=== PATIENT | male | born 1960 | race Caucasian/White ===

== ENCOUNTER 2016-04-25 11:15 | Emergency (ER) | payer OTHER ==
[~2016-04-25] VITALS: Ht 185.4 cm; Wt 86.2 kg
[~2016-04-25 11:15] MED LIST: AMOXICILLIN500 M2 PO; AMOXICILLIN500 MG PO; BACTRIM DS 8001 TAB PO; BENZONATATE200 M1 PO; CEPHALEXIN500 MG PO; CIPRO 500MG (E500 MG PO; CIPROFLOXACIN500 MG PO; FLAG500 PO; HYDROCODONE/ACE1 TA1 PO; MOBIC15 MG PO; MORPHINE SULFAT15 M3 PO; MS CONTIN15 M1 PO; OXYCODONE HCL10 M2 PO; OXYCODONE HYDRO10 M1 PO; PERCOCET 325 MG1 TA2 PO; PERCOCET 5-3251 EACH PO; PROVENTIL HFA6.7 GM INH; VICODIN5-300 PO; ZITHROMAX250 M2 PO
--- NOTE | 2016-04-25 12:36 | ED NECK/BACK PAIN COMPLAINT ---
History of Present Illness General Chief Complaint: Neck/Upper Back Pain/Injury Stated Complaint: NECK INJ. Source: patient, old records Exam Limitations: no limitations Vital Signs & Intake/Output Vital Signs & Intake/Output Vital Signs Date Time Temp Pulse Resp B/P Pulse O2 O2 Flow FiO2 Ox Delivery Rate 04/25 1415 97.6 69 17 118/79 97 Room Air 04/25 1124 98.7 89 20 154/90 97 Room Air Allergies Coded Allergies: NO KNOWN ALLERGIES (07/29/15) Reconcile Medications Albuterol Sulfate (Proventil Hfa) 90 MCG HFA.AER.AD 2 PUF INH Q4 cough Azithromycin (Zithromax) 250 MG TABLET 1 DP PO AD bronchitis 2 the first day followed by 1 for days 2-5 Benzonatate 200 MG CAPSULE 1 CAP PO TIDPRN cough Diazepam (Valium) 5 MG TABLET 1-2 TAB PO Q6P PRN muscle strain/spasm Ibuprofen 800 MG TABLET 1 TAB PO Q6PRN PRN pain Morphine Sulfate (Morphine Sulfate ER) 15 MG TABLET.ER 1 TAB PO BIDP PRN PAIN (Reported) Oxycodone HCl 10 MG TABLET 1 TAB PO 4 TIMES/DAY PRN PAIN (Reported) OXYCODONE HCL (Oxycodone Hydrochloride) 10 MG TAB 1 TAB PO 4 TIMES/DAY PAIN ( Reported) Triage Note: PT TRIPPED AND FELL AT WORK ON SUNDAY INJURING RIGHT SIDE OF NECK. FELT LIKE HE WAS GETTING BETTER BUT TODAY FEELS WORSE Triage Nurses Notes Reviewed? yes Onset: 3 days Duration: day(s):, constant, continues in ED Timing: recent history Quality/Severity: severe, sharpness Location: C-spine, paraspinous muscles Radiation: none Context: fall/near fall Method of Injury: fall, twisted Loss of Consciousness: no loss of consciousness Modifying Factors: immobilization, jarring, movement, rest Associated Symptoms: muscle spasm HPI: 3 days prior to admission OF what patient lost control and fell onto his right hip and later developed generalized neck pain not controlled with chronic pain medications. He denies fever chills nausea vomiting diarrhea abdominal pain chest pain shortness breath headache dysuria rash bleeding change in motor sensory function change in bowel bladder habit. Past History Travel History Traveled to [place] past 21 day No Medical History Any Pertinent Medical History? 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 No Review of Systems Review of Systems Constitutional: Reports: no symptoms. Eyes: Reports: no symptoms. Ears, Nose, Throat, Mouth: Reports: no symptoms. Respiratory: Reports: no symptoms. Cardiovascular: Reports: no symptoms. Gastrointestinal/Abdominal: Reports: no symptoms. Musculoskeletal: Reports: see HPI, muscle pain, muscle stiffness, neck pain. Skin: Reports: no symptoms. Neurological/Psychological: Reports: no symptoms. All Other Systems: Reviewed and Negative Physical Exam Physical Exam General Appearance: well developed/nourished, alert, awake, anxious, moderate distress Head: atraumatic, normal appearance Eyes: Bilateral: normal appearance, PERRL, EOMI, normal inspection. Ears, Nose, Throat, Mouth: hearing grossly normal, moist mucous membrane Neck: normal inspection, supple, normal alignment, paraspinous muscle tender, no midline tenderness Respiratory: normal breath sounds, chest non-tender, no respiratory distress, quiet respiration, lungs clear Cardiovascular: regular rate/rhythm, normal peripheral pulses, norml femoral pulses equa Peripheral Pulses: 4+ carotid (R), 4+ carotid (L) Gastrointestinal: soft, non-tender Back: normal inspection, normal range of motion, no vertebral tenderness Extremities: non-tender, normal range of motion, no ligament instability Straight Leg Raising: Right: Negative. Left: Negative. Sensory: Medial Le: L4R, L4L. Top of Foot: 2: L5R, L5L. Sole of Foot: 2: SIR, ZHENG. Motor: Deficit L4 Right: No Deficit L4 Left: No Deficit L5 Right: No Deficit L5 Left: No Deficit S1 Right: No Deficit S1 Right: No Ext. Big Toe: 3: L5 Left, L5 Right. DTR: Deficit L4 Left: No Deficit L4 Right: No Deficit S1 Left: No Deficit S1 Right: No Patellar: 3: L4 Right, L4 Left. 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 Discussed w/RAD: CT Scan. Radiology Impression: 1. There are no acute fractures or subluxations. 2. There are posterior disc osteophyte complexes and uncovertebral osteophytosis most severe at C5-C6 and C6-C7, with foraminal narrowing as described. 3. There is multilevel facet arthropathy, most severe on the left at C4-C5. Departure Departure Time of Disposition: 135 Disposition: HOME OR SELF CARE Condition: Stable Clinical Impression Primary Impression: Cervical myofascial strain Qualifiers: Encounter type: initial encounter Qualified Code: S16.1XXA - Strain of muscle, fascia and tendon at neck level, initial encounter Referrals: BRIANNA DANG MD (PCP/Family) Departure Forms: Customer Survey General Discharge Information Prescriptions: Current Visit Scripts Diazepam (Valium) 1-2 TAB PO Q6P PRN muscle strain/spasm #30 TAB Ref 1 Ibuprofen 1 TAB PO Q6PRN PRN pain #50 TAB
--- NOTE | 2016-04-25 13:22 | CT SCAN REPORT ---
EXAMINATION: CT CERVICAL SPINE WITHOUT CONTRAST CLINICAL INFORMATION: Near fall with neck pain and radiculopathy. COMPARISON: MRI scan 05/18/2011. TECHNIQUE: A noncontrast axial CT scan of the cervical spine was obtained. Coronal and sagittal reformatted images were generated at the acquisition workstation. DLP: 362.02 mGy-cm FINDINGS: The study redemonstrates reversal of the cervical lordosis. There is narrowing of intervertebral disc height with marginal osteophytes at C5-C6 and C6-C7, demonstrated on the prior study. There are sclerotic and degenerative endplate changes at these levels. There are no acute compression fractures. The lateral masses of C1 and C2 are normally aligned and the dens is intact. There are small cysts in the base of the dens and body of C2, which are likely degenerative and have developed since the prior study. Bone mineralization is normal. The prevertebral soft tissues are unremarkable. The visualized lung apices are well aerated. SPINAL LEVELS: C2-C3: There is a prominent posterior disc osteophyte complex on the left and there are uncovertebral osteophytes. There is severe left facet arthropathy. There is [id number] left and moderate right foraminal narrowing. There is no central stenosis. C3-C4: There is severe left facet arthropathy. There is a posterior disc osteophyte complex. There are bilateral uncovertebral osteophytes. There is moderate bilateral foraminal narrowing. There is no central stenosis. C4-C5: There is severe left facet arthropathy. There is a posterior disc protrusion. There are left greater than right uncovertebral osteophytes. There is moderate left and mild right foraminal narrowing. There is no central stenosis. C5-C6: There is moderate right facet arthropathy. There is a posterior disc osteophyte complex. There are large uncovertebral osteophytes bilaterally. There is severe right and moderate left foraminal narrowing. There is no central stenosis. C6-C7: There is a broad-based posterior disc osteophyte complex. There are large bilateral uncovertebral osteophytes. There is severe bilateral foraminal narrowing. There is no central stenosis. C7-T1: Disc contour is normal. There is no central stenosis or foraminal narrowing. IMPRESSION: 1. There are no acute fractures or subluxations. 2. There are posterior disc osteophyte complexes and uncovertebral osteophytosis most severe at C5-C6 and C6-C7, with foraminal narrowing as described. 3. There is multilevel facet arthropathy, most severe on the left at C4-C5.
[2016-04-25] MEDS ORDERED: IBUPROFEN800 M1 PO (13:58)
[2016-04-25] MEDS ORDERED: VALIUM5 M2 PO (13:58)
[2016-04-25 14:15] VITALS: BP 118/79
== END 2016-04-25 14:16 ==
LOC: ERH 11:15
DX: S16.1XXA Strain of muscle, fascia and tendon at neck level, initial encounter (principal); W19.XXXA Unspecified fall, initial encounter
CPT/HCPCS: J3360

== ENCOUNTER 2016-09-28 12:55 | Emergency (ER) | payer OTHER ==
[~2016-09-28] VITALS: Ht 185.4 cm; Wt 88.5 kg
[~2016-09-28 12:55] MED LIST changes: +IBUPROFEN800 M1 PO; +VALIUM5 M2 PO
--- NOTE | 2016-09-28 13:28 | ED GI/GU/ABDOMINAL COMPLAINT ---
History of Present Illness General Chief Complaint: Nausea, Vomiting, Diarrhea Stated Complaint: NAUSEA, VOMITING Source: patient, old records Exam Limitations: no limitations Vital Signs & Intake/Output Vital Signs & Intake/Output Vital Signs Date Time Temp Pulse Resp B/P B/P Pulse O2 O2 Flow FiO2 Mean Ox Delivery Rate 09/28 1605 96.8 57 16 133/86 99 Room Air 09/28 1300 97.4 69 18 149/87 94 Room Air Allergies Coded Allergies: NO KNOWN ALLERGIES (07/29/15) Reconcile Medications Ondansetron (Zofran Odt) 4 MG TAB.RAPDIS 1 TAB SL TID PRN NAUSEA Oxycodone HCl 10 MG TABLET 1 TAB PO TID PAIN (Reported) Triage Note: PT STATES HE HAS HAD NAUSEA FOR THE PAST WEEK. PT STATES HE HAS BEEN VOMITING EVERY DAY AND IS UNABLE TO KEEP ANYTHING DOWN. PT C/O FREQUENT URINATION. PT HAVING RIGHT FLANK PAIN THAT MAKES HIM VOMIT. PT STATES HE FEELS BLOATED AND WHEN HE TAKES A FEW BITES OF FOOT IT FEELS LIKE HE ATE A LARGE MEAL. Triage Nurses Notes Reviewed? yes HPI: Patient presents complaining of nausea vomiting or generalized abdominal crampy pain as well as early safety and occasional right flank pain. Patient states he occasionally also has urinary frequency but denies any dysuria. Patient states he is unable to keep anything down for the past week. There's been no diarrhea. Crampy abdominal pain is constant and is diffuse. He rates it as 3 out of 10. There is no radiation outside of the tonsil area. There are no aggravating or mitigating factors. The pain in his right flank is intermittent lasting a few minutes and then goes away. There is no radiation. Pain is sharp in nature. There are no aggravating or mitigating factors. He rates that pain at 7 out of 10 when he has it. Patient has seen Dr. Sanchez in the past for similar symptoms. Past History Travel History Traveled to [place] past 21 day No Medical History Any Pertinent Medical History? 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 No Review of Systems Review of Systems Constitutional: Reports: no symptoms. EENTM: Reports: no symptoms. Respiratory: Reports: no symptoms. Cardiovascular: Reports: no symptoms. GI: Reports: see HPI, abdominal pain, bloody stool, vomiting. Genitourinary: Reports: no symptoms. Musculoskeletal: Reports: no symptoms. Skin: Reports: no symptoms. Neurological/Psychological: Reports: no symptoms. Hematologic/Endocrine: Reports: no symptoms. Immunologic/Allergic: Reports: no symptoms. All Other Systems: Reviewed and Negative Physical Exam Physical Exam General Appearance: well developed/nourished, alert, awake, anxious, mild distress Head: atraumatic, normal appearance Eyes: Bilateral: PERRL, EOMI. Ears, Nose, Throat, Mouth: hearing grossly normal, DRY MUCOSA Neck: normal inspection, supple, full range of motion Respiratory: normal breath sounds, chest non-tender, no respiratory distress, lungs clear Cardiovascular: regular rate/rhythm, normal peripheral pulses Gastrointestinal: normal bowel sounds, soft, non-tender, no organomegaly Back: normal inspection, normal range of motion Extremities: normal range of motion Neurologic/Psych: no motor/sensory deficits, awake, alert, oriented x 3, normal gait Skin: intact, normal color, warm/dry Core Measures ACS in differential dx? No Severe Sepsis Present: No Septic Shock Present: No Progress Differential Diagnosis: appendicitis, biliary colic, cholecystitis, diverticulitis, gastritis, hepatitis, ischemic bowel, inflamm bowel dis, pancreatitis, peptic ulcer, PUD/GERD, SBO Plan of Care: Orders Procedure Date/time Status URINALYSIS 09/28 1327 Complete LIPASE 09/28 1327 Complete COMPREHENSIVE METABOLIC PANEL 09/28 132 Complete CBC WITHOUT DIFFERENTIAL 09/28 132 Complete AMYLASE 09/28 1327 Complete Laboratory Tests 09/28/16 1345: Urinalysis LIGHT H, Urine Color YEL, Urine Clarity CLEAR, Urine pH 6.5, Ur Specific [place] 1.010, Urine Protein NEG, Urine Ketones 15 H, Urine Nitrite NEG, Urine Bilirubin NEG, Urine Urobilinogen 0.2, Ur Leukocyte Esterase NEG, Ur Microscopic SEDIMENT EXAMINED, Urine RBC 3-5, Urine Bacteria FEW H, Urine Hemoglobin MOD H, Urine Glucose NEG 09/28/16 1334: Anion Gap 10, Estimated GFR > 60, BUN/Creatinine Ratio 14.0, Glucose 82, Calcium 9.7, Total Bilirubin 0.7, AST 28, ALT 32, Alkaline Phosphatase 81, Total Protein 7.4, Albumin 4.6, Globulin 2.8, Albumin/Globulin Ratio 1.6, Amylase 46, Lipase 72, CBC w Diff NO MAN DIFF REQ, RBC 4.98, MCV 83.6, MCH 28.5, RDW 13.8, MPV 7.2 L, Gran % 64.5, Lymphocytes % 25.5, Monocytes % 7.5, Eosinophils % 2.1, Basophils % 0.4, Absolute Granulocytes 4.1, Absolute Lymphocytes 1.6, Absolute Monocytes 0.5, Absolute Eosinophils 0.1, Absolute Basophils 0, PUBS MCHC 34.0 Diagnostic Imaging: Viewed by Me: CT Scan. Discussed w/RAD: CT Scan. Radiology Impression: PATIENT: BRIDGETTE BRAVO PRESENT AGE: 56 PATIENT ACCOUNT NO: [id number] : 61 LOCATION: [facility] ORDERING PHYSICIAN: LADAN BENOIT MD SERVICE DATE: 09/28/16 EXAM TYPE: CAT - CT ABD & PELVIS W IV CONTRAST EXAMINATION: CT ABDOMEN AND PELVIS WITH CONTRAST CLINICAL INFORMATION: Diffuse abdominal pain. COMPARISON: 11/21/2015 TECHNIQUE: Multidetector volumetric imaging was performed of the abdomen and pelvis before and after the IV administration of 95 mL of Optiray 320 intravenous contrast. Sagittal and coronal reformatted images were obtained on the technologist's workstation. DLP: 353 mGy-cm FINDINGS: LUNG BASES: Unremarkable. LIVER, GALLBLADDER, AND BILIARY TREE: Unremarkable. PANCREAS: Unremarkable. SPLEEN: Unremarkable. ADRENAL GLANDS: Unremarkable. KIDNEYS AND URETERS: Kidneys have normal size, cortical thickness and attenuation. No renal mass, nephrolithiasis, hydronephrosis or perinephric edema. BLADDER: Unremarkable. GASTROINTESTINAL TRACT: Bowel loops are normal in caliber. No evidence of acute inflammation or obstruction along the gastrointestinal tract. Appendix is 0.5 cm diameter and there is no periappendiceal fat stranding (images [id number], series 3). No ascites or pneumoperitoneum. ABDOMINAL WALL: Intact appearance of mesh of the lower abdominal wall. No abdominal wall or inguinal hernia. LYMPH NODES: No pathologic sized lymph nodes within the abdomen or pelvis. VASCULAR: Abdominal aorta is normal in caliber and the celiac trunk, SMA, JUDY and renal arteries are widely patent. PELVIC VISCERA: Prostate gland is grossly unremarkable. No pelvic free fluid. 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 Multilevel disc degeneration of the lumbar spine and chronic, minimal retrolisthesis at L1-L2 and L2-L3. 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 IMPRESSION: No acute imaging abnormalities within the abdomen or pelvis compared to 11/21/2015. DICTATED BY: GEOVANNA HAMPTON MD DATE/ TIME DICTATED:09/28/161536 FANCY SEWER:ZAC DATE/TIME TRANSCRIBED: 09/28/161536 CONFIDENTIAL, DO NOT COPY WITHOUT APPROPRIATE AUTHORIZATION. < Electronically signed in Other Vendor System> SIGNED BY: GEOVANNA HAMPTON MD 09/28/16 1549 Initial ED EKG: none Departure Departure Disposition: HOME OR SELF CARE Condition: Stable Clinical Impression Primary Impression: Upper abdominal pain, unspecified Secondary Impressions: Nausea Referrals: BRIANNA DANG MD (PCP/Family) ETTA SANCHEZ MD Additional Instructions: TAKE ZOFRAN NEEDED FOR NAUSEA FOLLOW UP WITH DR. SANCHEZ RETURN FOR ANY CONCERNS Departure Forms: Customer Survey General Discharge Information Prescriptions: Current Visit Scripts Ondansetron (Zofran Odt) 1 TAB SL TID PRN NAUSEA #10 TAB
[2016-09-28 13:41] LABS: ABSOLUTE BASOPHIL COUNT 0 /CUMM (0.0-0.2); ABSOLUTE EOSINOPHIL COUNT 0.1 /CUMM (0.0-0.7); ABSOLUTE GRANULOCYTE CT 4.1 /CUMM (1.4-6.5); ABSOLUTE LYMPH COUNT 1.6 /CUMM (1.2-3.4); ABSOLUTE MONOCYTE COUNT 0.5 /CUMM (0.10-0.60); BASOPHIL % 0.4 % (0.0-2.0); EOSINOPHIL % 2.1 % (0-5); GRANULOCYTE % 64.5 % (42.2-75.2); HEMATOCRIT 41.7 % (42-52); MEAN CORPUSCULAR HGB 28.5 PG (27.0-31.0); MEAN CORPUSCULAR VOLUME 83.6 FL (80.0-94.0); MEAN PLATELET VOLUME 7.2 FL (7.4-10.4); PLATELET COUNT 302 /CUMM (130-400); RBC DISTRIBUTION WIDTH 13.8 % (11.5-14.5); RED BLOOD CELL CT 4.98 /CUMM (4.70-6.10); WHITE BLOOD CELL COUNT 6.3 /CUMM (4.8-10.8)
--- NOTE | 2016-09-28 15:49 | CT SCAN REPORT ---
EXAMINATION: CT ABDOMEN AND PELVIS WITH CONTRAST CLINICAL INFORMATION: Diffuse abdominal pain. COMPARISON: 11/21/2015 TECHNIQUE: Multidetector volumetric imaging was performed of the abdomen and pelvis before and after the IV administration of 95 mL of Optiray 320 intravenous contrast. Sagittal and coronal reformatted images were obtained on the technologist's workstation. DLP: 353 mGy-cm FINDINGS: LUNG BASES: Unremarkable. LIVER, GALLBLADDER, AND BILIARY TREE: Unremarkable. PANCREAS: Unremarkable. SPLEEN: Unremarkable. ADRENAL GLANDS: Unremarkable. KIDNEYS AND URETERS: Kidneys have normal size, cortical thickness and attenuation. No renal mass, nephrolithiasis, hydronephrosis or perinephric edema. BLADDER: Unremarkable. GASTROINTESTINAL TRACT: Bowel loops are normal in caliber. No evidence of acute inflammation or obstruction along the gastrointestinal tract. Appendix is 0.5 cm diameter and there is no periappendiceal fat stranding (images [id number], series 3). No ascites or pneumoperitoneum. ABDOMINAL WALL: Intact appearance of mesh of the lower abdominal wall. No abdominal wall or inguinal hernia. LYMPH NODES: No pathologic sized lymph nodes within the abdomen or pelvis. VASCULAR: Abdominal aorta is normal in caliber and the celiac trunk, SMA, JUDY and renal arteries are widely patent. PELVIC VISCERA: Prostate gland is grossly unremarkable. No pelvic free fluid. 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 Multilevel disc degeneration of the lumbar spine and chronic, minimal retrolisthesis at L1-L2 and L2-L3. 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 IMPRESSION: No acute imaging abnormalities within the abdomen or pelvis compared to 11/21/2015.
[2016-09-28] MEDS ORDERED: ZOFRAN ODT4 M1 SL (16:04)
[2016-09-28 16:05] VITALS: BP 133/86
== END 2016-09-28 16:11 ==
LOC: ERH 12:55
PROVIDERS: Emergency Medicine
DX: R10.84 Generalized abdominal pain (principal); R11.2 Nausea with vomiting, unspecified
CPT/HCPCS: 74177; 81001; J2405

== ENCOUNTER 2017-08-25 12:37 | Emergency (ER) | payer OTHER ==
[~2017-08-25] VITALS: Ht 185.4 cm; Wt 77.1 kg
[~2017-08-25 12:37] MED LIST changes: +ZOFRAN ODT4 M1 SL
[2017-08-25 13:49] VITALS: BP 120/70
[2017-08-25] MEDS ORDERED: VIGAMOX3 ML OPH (13:54)
--- NOTE | 2017-08-25 13:54 | ED EYE COMPLAINT ---
History of Present Illness General Chief Complaint: Eye Problems Stated Complaint: "EYES PRODUCING COPIOUS AMTS OF WHITE MUCUS X12HR Source: patient Exam Limitations: no limitations Vital Signs & Intake/Output Vital Signs & Intake/Output Vital Signs Date Time Temp Pulse Resp B/P B/P Pulse O2 O2 Flow FiO2 Mean Ox Delivery Rate 08/25 1349 98.0 80 20 120/70 97 Room Air 08/25 1241 98.4 85 18 127/72 96 Room Air Allergies Coded Allergies: NO KNOWN ALLERGIES (07/29/15) Reconcile Medications Moxifloxacin Hydrochloride (Vigamox) 0.5 % DROPS 1 GTT OPH TID conjunctiviits Ondansetron (Zofran Odt) 4 MG TAB.RAPDIS 1 TAB SL TID PRN NAUSEA Oxycodone HCl 10 MG TABLET 1 TAB PO TID PAIN (Reported) Triage Note: PT TO ER C/C BILATERAL WHITE DISCHARGE AND FLOATING SPOTS TO VISUAL RYDER. NON-PRUITIC. Triage Nurses Notes Reviewed? yes Onset: Abrupt Duration: day(s): (2), constant, continues in ED, getting worse Timing: single episode today Injury Environment: home Severity: moderate, severe No Modifying Factors: none Left Eye Associated Symptoms: eyelid swelling, foreign body sensation, blurred vision Right Eye Associated Symptoms: eyelid swelling, foreign body sensation, blurred vision HPI: 57 Y/O male past medical history of chronic back pain presents for evaluation of bilateral eye irritation and redness and discharge. Patient states symptoms started about 2 days ago and have been progressing. He reports that when he woke up in the morning today that his eyes were crusted shut. There is been large amounts of thick white/yellow discharge. He reports that there is been been so much discharge it caused blurry vision. He denies any visual field deficits, eye pain, trauma, possibility of wood or metal foreign body, fever, sore throat, ear pain or any other concerns. He does not wear contacts. No sick contacts. (Trenton Lawler) Past History Travel History Traveled to [place] past 21 day No Medical History Any Pertinent Medical History? 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 No (Trenton Lawler) Review of Systems Review of Systems Constitutional: Reports: no symptoms. Eyes: Reports: see HPI, blurred vision, drainage, inflammation, other (DISCHARGE). Ear: Reports: no symptoms. Nose: Reports: no symptoms. Mouth: Reports: no symptoms. Throat: Reports: no symptoms. Respiratory: Reports: no symptoms. Cardiovascular: Reports: no symptoms. GI: Reports: no symptoms. Genitourinary: Reports: no symptoms. Musculoskeletal: Reports: no symptoms. Skin: Reports: no symptoms. Neurological/Psychological: Reports: no symptoms. Hematologic/Endocrine: Reports: no symptoms. Immunologic/Allergic: Reports: no symptoms. All Other Systems: Reviewed and Negative (Trenton Lawler) Physical Exam General Appearance: well developed/nourished, no apparent distress, alert, awake General Inspection: normal inspection Eyelid: normal inspection, everted for exam Conjunctiva/Sclera: injected Cornea: normal inspection EOM: intact Pupil: normal accommodation, normal pupil, PERRL Anterior Chamber: normal inspection General Inspection: normal inspection Eyelid: normal inspection, everted for exam Conjunctiva/Sclera: injected Cornea: normal inspection EOM: intact Pupil: normal accommodation, normal pupil, PERRL Anterior Chamber: normal inspection Physical Exam Head: atraumatic, normal appearance Nose: normal inspection Mouth/Throat: normal mouth inspection, pharynx normal Neck: normal inspection, supple, full range of motion Cardiovascular/Respiratory: normal breath sounds, normal peripheral pulses, regular rate/rhythm, no respiratory distress Neurologic/Psych: no motor/sensory deficits, awake, alert, oriented x 3, normal gait Skin: intact, normal color, warm/dry (Trenton Lawler) Progress Differential Diagnosis: corneal abrasion, corneal foreign body, conjunctivitis Plan of Care: Patient seen and evaluated. He is here with bilateral eye redness and irritation and discharge. On exam the conjunctiva are injected there is a small amount of purulent discharge in the bilateral medial canthus. No foreign body. Patient denies eye pain or trauma. Visual acuity is 20/50 left right and bilateral. Patient will be given a prescription for Vigamox. Advised him to rest and keep his eyes clean. Wash hands disinfect surfaces avoid close contact with others. Apply warm compresses. Follow-up with primary care doctor and eye doctor for a recheck. Discussed return precautions patient agrees the plan. (Trenton Lawler) Departure Departure Disposition: HOME OR SELF CARE Condition: Stable Clinical Impression Primary Impression: Conjunctivitis Qualifiers: Conjunctivitis type: acute Acute conjunctivitis type: bacterial Laterality: bilateral Qualified Code: H10.33 - Unspecified acute conjunctivitis, bilateral Referrals: [facility]kys ROSA,René Bolton (PCP/Family) Additional Instructions: Apply antibiotic drops as directed for full course. Wash hands disinfect surfaces avoid close contact with others. Avoid rubbing her eyes. Apply warm compresses for 15-20 minutes every few hours. Make a follow-up with your primary care doctor and eye doctor for a recheck in a few days monitor symptoms return with any concerns. Departure Forms: Customer Survey General Discharge Information Prescriptions: Current Visit Scripts Moxifloxacin Hydrochloride (Vigamox) 1 GTT OPH TID #3 ML (Trenton Lawler) PA/CASE MANAGEMENT MANAGER Co-Sign Statement Statement: ED Attending supervision documentation- [] I saw and evaluated the patient. I have also reviewed all the pertinent lab results and diagnostic results. I agree with the findings and the plan of care as documented in the PA's/CASE MANAGEMENT MANAGER's documentation. [X] I have reviewed the ED Record and agree with the PA's/CASE MANAGEMENT MANAGER's documentation. [] Additions or exceptions (if any) to the PAs/CASE MANAGEMENT MANAGER's note and plan are summarized below: [] (Ike Delgado DO
== END 2017-08-25 14:01 ==
LOC: ERH 12:37
DX: H10.9 Unspecified conjunctivitis (principal)